=== PATIENT | male | born 2000 | race Caucasian/White ===

== ENCOUNTER 2022-02-23 19:06 | Observation (INO) | payer OTHER ==
[~2022-02-23] VITALS: Ht 185.4 cm; Wt 81.9 kg
[2022-02-23 20:13] LABS: BASO % 0.4 % (0.0-2.0); EOS # 0.1 K/mm3 (0.0-0.7); EOS % 0.9 % (0.0-4.0); GRAN # 6.3 K/mm3 (1.4-6.5); GRAN % 58.5 % (42.2-75.2); HEMATOCRIT 45.5 % (36.0-47.0); HEMOGLOBIN 15.9 g/dl (12.5-16.1); LYMPH # 3.6 K/mm3 (1.2-3.4); LYMPH % 32.9 % (20.0-51.0); MEAN CELL VOLUME 89 fl (80.0-95.0); MEAN CORPUSCULAR HEMOGLOBIN 31 pg (26-32); MEAN CORPUSCULAR HGB CONC 35 g/dl (33.0-37.0); MEAN PLATELET VOLUME 10.5 fl (7.4-10.4); MONO # 0.8 K/mm3 (0.1-0.6); MONO % 7.1 % (1.7-9.3); PLATELET COUNT 168 K/mm3 (130-400); RED BLOOD COUNT 5.14 M/mm3 (4.20-5.60); REDCELL DISTRIBUTION WIDTH-CV 12.9 % (11.5-14.5)
[2022-02-23 20:36] LABS: ALBUMIN 5.1 gm/dL (3.5-5.0); BILIRUBIN,TOTAL 0.8 mg/dL (0.2-1.2); C-REACTIVE PROTEIN 0.38 mg/dL (0.00-0.50); CALCIUM 9.9 mg/dL (8.4-10.2); CREATININE, serum 0.99 mg/dL (0.72-1.25); POTASSIUM 3.9 mmol/L (3.5-4.5); TOTAL PROTEIN 7.8 gm/dL (6.2-8.1)
[2022-02-23 21:42] VITALS: BP 121/54; PULSE 60; TEMP 97.8
--- NOTE | 2022-02-23 22:15 | NUR ---
Admitted to medical floor from ER, DX : pancreatitus, pleasant, alert/oriented, states abd pain is about 6/10 at this time, denies nausea, will give Morphine 2mg IV as ordered, IV fluids of NS at 125cc/hr to left AC IV site, up as tolerated, steady on feet- VSS
[2022-02-23 23:43] VITALS: BP 121/61; PULSE 51; TEMP 97.6
[2022-02-24 04:27] VITALS: BP 111/51; PULSE 54; TEMP 97.5
--- NOTE | 2022-02-24 04:52 | NUR ---
Quiet night, VSS. Had had Morphine 2mg IV x2 tonight for abd pain- denies nausea.
[2022-02-24 06:34] LABS: BASO % 0.3 % (0.0-2.0); EOS # 0.1 K/mm3 (0.0-0.7); EOS % 0.7 % (0.0-4.0); GRAN # 5.4 K/mm3 (1.4-6.5); GRAN % 56.3 % (42.2-75.2); HEMATOCRIT 39.2 % (36.0-47.0); LYMPH # 3.3 K/mm3 (1.2-3.4); LYMPH % 34.3 % (20.0-51.0); MEAN CELL VOLUME 92 fl (80.0-95.0); MEAN CORPUSCULAR HEMOGLOBIN 31 pg (26-32); MEAN CORPUSCULAR HGB CONC 34 g/dl (33.0-37.0); MEAN PLATELET VOLUME 11.2 fl (7.4-10.4); MONO # 0.8 K/mm3 (0.1-0.6); MONO % 8.1 % (1.7-9.3); PLATELET COUNT 142 K/mm3 (130-400); RED BLOOD COUNT 4.27 M/mm3 (4.20-5.60); REDCELL DISTRIBUTION WIDTH-CV 13.1 % (11.5-14.5)
[2022-02-24 06:48] LABS: HEMOGLOBIN 13.4 g/dl (12.5-16.1)
[2022-02-24 06:57] LABS: CREATININE, serum 0.85 mg/dL (0.72-1.25); MAGNESIUM 1.9 mg/dL (1.7-2.2); POTASSIUM 4.1 mmol/L (3.5-4.5)
[2022-02-24 06:58] LABS: CHOLESTEROL RISK RATIO 2.6
[2022-02-24 07:46] VITALS: BP 108/55; PULSE 50; TEMP 97.8
[2022-02-24 11:42] VITALS: BP 105/52; PULSE 50; TEMP 97.9
--- NOTE | 2022-02-24 13:10 | NUR ---
Diana: Judaism Situation: publications writer stopped by room on rounds Background: Pt was resting and content Assessment: no needs right now. Pt appreciated the visit Recommendation: publications writer will follow up as needed
[2022-02-24 16:02] VITALS: BP 110/55; PULSE 42; TEMP 98.3
--- NOTE | 2022-02-24 18:25 | NUR ---
PATIENT HAS NOT TOLERATED CLEAR LIQUID DIET FOR THE DAY. EACH MEAL ONLY ATE ABIOUYT 20-40 PERCENT. KRISTIN STATED HE IS HUNGRY BUT HIS STOMACH BEGINS TO CRAMP WHEN HE HAS ANY INTAKE.
--- NOTE | 2022-02-24 18:30 | NUR ---
PT LAYING IN BED WITH FATHER AT BEDSIDE. CURRENTLY DENIES PAIN. STATES 5-10 MINUTES AFTER EATING PAIN GOES UP TO A 6/10. NO OTHER CONCERNS.
[2022-02-24 19:36] VITALS: BP 102/48; PULSE 40; TEMP 97.9
[2022-02-24 23:20] VITALS: BP 109/49; PULSE 54; TEMP 97.9
[2022-02-25 03:30] VITALS: BP 110/59; BP 125/82; PULSE 40; PULSE 75; TEMP 98.6
[2022-02-25 06:21] LABS: CALCIUM 8.9 mg/dL (8.4-10.2); CREATININE, serum 0.86 mg/dL (0.72-1.25); POTASSIUM 4.1 mmol/L (3.5-4.5)
[2022-02-25 06:28] LABS: BASO % 0.4 % (0.0-2.0); EOS # 0.1 K/mm3 (0.0-0.7); EOS % 1.7 % (0.0-4.0); GRAN # 3.7 K/mm3 (1.4-6.5); GRAN % 52.8 % (42.2-75.2); HEMATOCRIT 37.4 % (36.0-47.0); HEMOGLOBIN 12.9 g/dl (12.5-16.1); LYMPH # 2.6 K/mm3 (1.2-3.4); MEAN CELL VOLUME 91 fl (80.0-95.0); MEAN CORPUSCULAR HEMOGLOBIN 31 pg (26-32); MEAN CORPUSCULAR HGB CONC 35 g/dl (33.0-37.0); MEAN PLATELET VOLUME 11.5 fl (7.4-10.4); MONO # 0.6 K/mm3 (0.1-0.6); PLATELET COUNT 113 K/mm3 (130-400); RED BLOOD COUNT 4.13 M/mm3 (4.20-5.60); REDCELL DISTRIBUTION WIDTH-CV 12.9 % (11.5-14.5)
[2022-02-25 08:00] VITALS: BP 111/60; PULSE 42; TEMP 98.3
[2022-02-25 11:06] VITALS: BP 108/56; PULSE 44; TEMP 98.4
--- NOTE | 2022-02-25 12:45 | NUR ---
PATIENT CURRENTLY EATING LUNCH, NO COPMLAINTS OR PAIN AT THIS TIME
--- NOTE | 2022-02-25 14:06 | NUR ---
PATIENT EDGAR SHANE DISCHARGE INSTRUCTIONS AND EDUCATION. REVIEWED ALL AND ANSWERED QUESTIONS. IV DISCONTINUED. PATIENT LEFT WITH HIS FATHER IN STABLE CONDTION.
== END 2022-02-25 14:08 | disposition home or self-care (01) ==
LOC: COL.ER 19:06 → MEDICAL 20:13
PROVIDERS: Emergency Medicine; Student in an Organized Health Care Education/Training Program; ADMIT Student in an Organized Health Care Education/Training Program
DX: K85.80 Other acute pancreatitis without necrosis or infection (principal); Z28.310 Unvaccinated for COVID-19; Z28.9 Immunization not carried out for unspecified reason
CPT/HCPCS: G0378; J1650; J2270; J2405; J3010; J7030

== ENCOUNTER → 2022-02-23 | Outpatient (CLI) | payer OTHER | LOC: COL.RAD 13:10 | DX: K85.90 Acute pancreatitis without necrosis or infection, unspecified (principal) | CPT/HCPCS: Q9967 ==